=== PATIENT | female | born 1945 | race Two or more races ===

== ENCOUNTER 2020-06-02 09:57 | Inpatient (IN) | payer OTHER ==
[~2020-06-02] VITALS: Ht 157.5 cm; Wt 54.4 kg
[2020-06-12] MEDS ORDERED: TOPROL XL25 M1 PO (14:44)
[2020-06-19] MEDS ORDERED: VITAMIN C WITH500 MG (11:05)
[2020-06-19] MEDS ORDERED: ST. JOSEPH ASPI81 M2 (11:05)
[2020-06-22] MEDS ORDERED: ULTRACET PO (10:24)
[2020-06-22] MEDS ORDERED: HYOSCYAMINE0.125 M1 SL (10:24)
[2020-06-22] MEDS ORDERED: INTESTINEX680 M1 PO (10:25)
== END 2020-06-22 12:34 | disposition home or self-care (01) | DRG 331 ==
LOC: EDUNIT# 06-12 11:45 → RECOVERY 06-19 04:00 → O/R 06-19 09:11 → SURG 06-19 09:11 → RECOVERY 06-19 11:45 → SURG 06-19 16:35
PROVIDERS: ADMIT Surgery; ATTEND Surgery
PROC: 0DJD8ZZ Inspection of Lower Intestinal Tract, Via Natural or Artificial Opening Endoscopic (ICD-10-PCS; 2020-06-19)
PROC: 0DTN4ZZ Resection of Sigmoid Colon, Percutaneous Endoscopic Approach (ICD-10-PCS; principal; 2020-06-19 04:00)
DX: K57.32 Diverticulitis of large intestine without perforation or abscess without bleeding (principal); I11.9 Hypertensive heart disease without heart failure; N18.2 Chronic kidney disease, stage 2 (mild); I49.9 Cardiac arrhythmia, unspecified; Z95.4 Presence of other heart-valve replacement

== ENCOUNTER 2020-06-03 10:05 | Outpatient (CLI) | payer OTHER | END 2020-06-03 10:08 | disposition home or self-care (01) | LOC: RAD 10:05 | PROVIDERS: ATTEND Surgery | DX: R19.4 Change in bowel habit (principal); K56.690 Other partial intestinal obstruction; D37.4 Neoplasm of uncertain behavior of colon ==

== ENCOUNTER 2020-06-10 07:50 | Outpatient (CLI) | payer OTHER | END 2020-06-10 08:01 | disposition home or self-care (01) | LOC: LAB 07:50 | PROVIDERS: ATTEND Surgery | DX: R19.5 Other fecal abnormalities (principal); R19.4 Change in bowel habit; R19.7 Diarrhea, unspecified; K56.690 Other partial intestinal obstruction; D37.4 Neoplasm of uncertain behavior of colon ==

== ENCOUNTER 2021-01-13 06:30 | Day surgery (SDC) | payer OTHER ==
[~2021-01-13 06:30] MED LIST: HYOSCYAMINE0.125 M1 SL; INTESTINEX680 M1 PO; ST. JOSEPH ASPI81 M2; TOPROL XL25 M1 PO; ULTRACET PO; VITAMIN C WITH500 MG
== END 2021-01-13 11:58 | disposition home or self-care (01) ==
LOC: AMB-ENDOS 06:30
PROVIDERS: ATTEND Surgery
DX: K62.89 Other specified diseases of anus and rectum (principal); K64.8 Other hemorrhoids; Z20.822 Contact with and (suspected) exposure to COVID-19